=== PATIENT | female | born 1975 | race Caucasian/White ===

== ENCOUNTER 2018-04-20 22:54 | Emergency (ER) | payer SELFPAY ==
[~2018-04-20] VITALS: Ht 152.4 cm; Wt 68.7 kg
[2018-04-20 22:58] VITALS: BP 120/80; Ht 152.4 cm; Wt 68.7 kg
== END 2018-04-21 01:01 | disposition left against medical advice (07) ==
LOC: ED 22:54
DX: Z53.21 Procedure and treatment not carried out due to patient leaving prior to being seen by health care provider (principal)

== ENCOUNTER 2018-12-01 02:10 | Emergency (ER) | payer SELFPAY ==
[~2018-12-01] VITALS: Ht 152.4 cm; Wt 67.2 kg
[2018-12-01 02:16] VITALS: Ht 152.4 cm; Wt 67.2 kg
[2018-12-01 04:49] VITALS: BP 109/68
== END 2018-12-01 04:49 | disposition home or self-care (01) ==
LOC: ED 02:10
DX: R51 Headache (principal); R20.2 Paresthesia of skin; Z98.890 Other specified postprocedural states
CPT/HCPCS: 82962; J1200; J1885; J2765; J7030